=== PATIENT | male | born 1955 | race Caucasian/White ===

== ENCOUNTER 2018-08-09 13:41 | Emergency (ER) | payer MEDICAID, OTHER ==
[~2018-08-09] VITALS: Ht 172.7 cm; Wt 75.0 kg
[2018-08-09 14:06] VITALS: BP 109/77
[2018-08-09] MEDS ORDERED: SULF1TAB49 PO (14:38)
[2018-08-09] MEDS ORDERED: CEPH500C5 PO (14:38)
== END 2018-08-09 14:49 | disposition home or self-care (01) ==
LOC: ER 13:42
DX: L03.115 Cellulitis of right lower limb (principal); F12.90 Cannabis use, unspecified, uncomplicated
CPT/HCPCS: 99283

== ENCOUNTER 2018-08-12 12:56 | Emergency (ER) | payer MEDICAID, OTHER ==
[~2018-08-12] VITALS: Ht 172.7 cm; Wt 74.0 kg
[~2018-08-12 12:56] MED LIST: CEPH500C5 PO; SULF1TAB49 PO
[2018-08-12 13:19] VITALS: BP 154/92
== END 2018-08-12 14:10 | disposition home or self-care (01) ==
LOC: ER 12:56
DX: S70.361D Insect bite (nonvenomous), right thigh, subsequent encounter (principal); F12.90 Cannabis use, unspecified, uncomplicated; Z48.01 Encounter for change or removal of surgical wound dressing; Z79.899 Other long term (current) drug therapy; W57.XXXD Bitten or stung by nonvenomous insect and other nonvenomous arthropods, subsequent encounter
CPT/HCPCS: 99283